=== PATIENT | male | born 1980 | race Caucasian/White ===

== ENCOUNTER 2019-04-13 13:15 | Emergency (ER) | payer BC, OTHER ==
[~2019-04-13] VITALS: Ht 182.9 cm; Wt 86.2 kg
[2019-04-13 14:59] VITALS: BP 122/80
== END 2019-04-13 15:05 | disposition short-term general hospital (02) ==
LOC: ER 13:22
DX: S41.002A Unspecified open wound of left shoulder, initial encounter (principal); W34.09XA Accidental discharge from other specified firearms, initial encounter; Y93.89 Activity, other specified; Y99.8 Other external cause status; Y92.89 Other specified places as the place of occurrence of the external cause
CPT/HCPCS: 71045